=== PATIENT | female | born 2000 | race Caucasian/White ===

== ENCOUNTER → 2020-03-10 | Outpatient (CLI) | payer BC ==
[~2020-03-10] MED LIST: birth control
--- NOTE | 2020-03-10 21:27 | PAIN ---
DATE OF SERVICE: 03/10/2020 INITIAL CONSULTATION FOR PAIN CLINIC CHIEF COMPLAINT: Low back pain. HISTORY OF PRESENT ILLNESS: This is a 19-year-old female who presents with history of pain in the low back for about 7 months now. She fell on some stairs back in August 2019 when she was at school walking down some steps, and went down several steps on her back and on her buttocks. The patient reports that she has had significant pain since that time. Initially got better, but again much worse and recently has been limiting her activity fairly significantly. She has basically just been staying at home, sitting or lying down without much activity. The patient did see her neurosurgeon who is not recommending any surgical intervention at this time. The patient still has significant pain in the low back itself with standing, walking, changing positions, especially extension of the lumbar spine, rotation of the spine, but no radiation into the lower extremities. The patient reports it does not awaken her from sleep at night, much better with sitting or lying down. It does not affect her bowel or bladder control, but does affect her ability to walk. She is not using any assistive devices. She has had some chiropractic treatment was not significantly improving the pain. She is doing some stretching on her own. She is taking a muscle relaxer as well as naproxen, none of which have really decreased the pain by any significant measure. The patient reports her disability rating from 0-10, 10 being the worst, is a 7 with family home responsibilities, 6 with recreation and social activity, 5 with occupation, 0 sexual behavior, 6 with self-care and 3 with life support activities. The patient did have MRI scan of the lumbar spine showing only some mild diffuse disk bulging at L4-L5. The L5-S1 shows mild degeneration this with a broad-based central disk protrusion and moderate bilateral facet arthropathy. Mild bilateral foraminal stenosis. PAST MEDICAL HISTORY: Significant for only colds and coughs over the years. PREVIOUS SURGERIES: No previous surgeries. The patient has been in good health otherwise. ALLERGIES: The patient has no known drug allergies. CURRENT MEDICATIONS: Include oral contraceptives. No other medications except for [id number] naproxen. FAMILY HISTORY: Significant for no major medical problems or conditions. The patient's mother does have a back issues. SOCIAL HISTORY: The patient does not drink alcohol, does not smoke. Denies any illegal, illicit or recreational drugs. She is a student, single, lives locally at home with her parents in [place], [place]. REVIEW OF SYSTEMS: The patient's review of systems is positive for those items mentioned in history of present illness. All systems reviewed and otherwise negative. It is complete, full and well documented on the patient's chart. PHYSICAL EXAMINATION: VITAL SIGNS: The patient's blood pressure is 119/75, pulse 109, respirations 16, temperature 99.0 degrees Fahrenheit, height is 5 feet, weight is 160 pounds. GENERAL: The patient is awake, alert, oriented, appropriate, very pleasant demeanor. HEENT: Shows normocephalic, atraumatic. Extraocular movements are intact and symmetrical. Oral cavity: Mucous membranes moist and pink. Dentition is intact. NECK: Shows anterior throat supple without palpable lymphadenopathy noted. Swallow reflex symmetrical. CHEST: Shows normal on inspection. Breath sounds are clear bilaterally. HEART: Shows S1, S2 clear. No murmurs auscultated. ABDOMEN: Soft, nontender, nondistended. No palpable organomegaly is noted. No rebound or guarding demonstrated. BACK: Shows spine grossly in the midline. Normal appearing thoracic kyphosis and minor flattening of lumbar lordotic curvature with palpation. Inspection shows normal lordotic curvature. Paraspinous musculature shows symmetrical on inspection, with palpation shows some moderate tenderness throughout the upper, middle and lower distribution of paraspinous muscles, reasonably firm, but without specific trigger points atrophy or hypertrophy. No tenderness over the spinous processes, but some moderate tenderness with pressure over the posterior superior iliac spines. The sacroiliac joints are very mildly tender as well. No tenderness over the sacrum itself. The patient does show good rotational motion of lumbar spine but is tender both right and left as well as significant tenderness with extension and axial loading of the lumbar spine, better with forward flexion with some mild tenderness with forward flexion as well. EXTREMITIES: The patient's lower extremities show deep tendon reflexes at 2+ in the patellar, 1+ tendo-calcaneus tendons. Motor exam is strong with 5/5 dorsiflexion, extension, quadriceps and hamstring flexion symmetrical. Peripheral pulses are 1+ posterior tibia. No peripheral edema is noted bilaterally. Lower extremities are warm and dry to touch, equal in color and appearance. Straight leg raising noted to be negative for reproduction of any radicular symptoms. Gaenslen's and Brian's maneuvers are negative bilaterally as well. The patient is able to stand, stand on her toes without difficulty or loss of balance, walks with a normal appearing gait, does not appear to favor the right or left lower extremity. The patient does tend to favor her back when she is standing from a seated position, arch forward, keeps her back very straight when she is walking as well. SKIN: The patient's skin shows warm and dry, good turgor. No edema. No sores, rashes, or bruises throughout. IMPRESSION: 1. This is a 19-year-old female with 7-month history of low back pain after a fall at school. 2. MRI scan of lumbar spine as noted. 3. Consistent with facet syndrome, low back pain. PLAN: Options were discussed with the patient and the patient's mother, who accompanied her to visit today and we will start with most conservative measures at this time with stretching and strengthening exercises, heat applications as well as we will try Medrol Dosepak. The patient was given instructions as well as side effects with the medication. If not significantly improved, we did discuss potential of facet medial branch injections, to try the oral medications first and we will see how she responds. If not significantly better, we did discuss interventional techniques. She will follow up in approximately 1 week once the Medrol Dosepak is completed or sooner if any concerns arise. ALEXANDR TAVERAS MD DR: RADHA/mariangel JOB#: [id number] / [id number] BEN Blum MD
== END | disposition home or self-care (01) ==
LOC: PNCL 12:52
PROVIDERS: ATTEND Anesthesiology
DX: M47.897 Other spondylosis, lumbosacral region (principal); M51.27 Other intervertebral disc displacement, lumbosacral region; M48.07 Spinal stenosis, lumbosacral region; M53.86 Other specified dorsopathies, lumbar region
CPT/HCPCS: G0463

== ENCOUNTER → 2020-04-08 | Outpatient (CLI) | payer BC ==
[~2020-04-08] MED LIST changes: +BUPIVACAINE MPF 0.25% 10 ML VIAL. ONE; +IOHEXOL 180 MG/ML 10 ML VIAL. ONE; +methylPREDNISolone ACETATE 40 MG/ML VIAL. ONE; +methylPREDNISolone ACETATE 80 MG/ML VIAL. ONE
--- NOTE | 2020-04-08 11:34 | PAIN ---
DATE OF SERVICE: 04/08/2020 PROGRESS NOTE FOR PAIN CLINIC DIAGNOSES: Lumbar degenerative disk disease with lumbar spondylosis and lumbosacral spondylosis. HISTORY OF PRESENT ILLNESS: The patient is a 19-year-old female who returns for followup status post initial evaluation and Medrol Dosepak, but not significantly reducing the pain in the first few days. The patient reports the pain was improved only by about 30%. Pain returned fairly quickly after that in the low back bilaterally. The patient reports it is still better with sitting or lying down, but much worse with walking, standing with pain across the low back bilaterally, especially with extension of the spine and axial loading of the lumbar spine. The patient reports the pain is an 8 on a scale of 10 at its worst over the past week, 7 on average, 6 at its least and is a 7 today. The patient reports it is aching and sharp at times, constant, not radiating into the lower extremities, but in the low back itself, again worse with rotational movement, standing for prolonged periods, walking, does not awaken her from sleep at night. PHYSICAL EXAMINATION: VITAL SIGNS: The patient's blood pressure 115/68, pulse 88, respirations 18, temperature 98.2 degrees Fahrenheit, weight is 161 pounds. GENERAL: The patient is awake, alert, oriented, appropriate, very pleasant demeanor. HEENT: Shows normocephalic, atraumatic. Extraocular movements are intact and symmetrical. Oral cavity shows mucous membranes moist and pink. Dentition is intact. NECK: Shows anterior throat supple without palpable lymphadenopathy noted. Swallow reflex symmetrical. CHEST: Shows normal on inspection. Breath sounds clear to auscultation bilaterally. HEART: Shows S1, S2 clear. No murmurs auscultated. ABDOMEN: Soft, nontender, nondistended. BACK: Shows spine grossly in the midline. Normal appearing thoracic kyphosis and some lumbar lordotic curvature. Lumbar paraspinous muscle shows symmetrical on inspection, on palpation shows some moderate tenderness diffusely bilaterally, but only diffusely without significant radiation. The patient shows some moderate tenderness with palpation and is moderately tender with rotation greater than 10 degrees right and left as well as extension with significant pain in the low back bilaterally without radiation, better with forward flexion at 45 degrees, but not completely relieved. EXTREMITIES: The patient's lower extremities show deep tendon reflexes at 2+ in the patellar, 1+ tendo-calcaneus tendons. Motor exam is strong with 5/5 dorsiflexion, extension, quadriceps and hamstring flexion and symmetrical. Peripheral pulses are 1+ posterior tibia. No peripheral edema is noted bilaterally. Options were discussed with the patient. The patient's old chart was reviewed as her current medication regimen updated. Current review of systems updated today as well and we will proceed with bilateral L4-L5 and L5-S1 facet joint injections today with fluoroscopic guidance. Risks were discussed including but not limited to bleeding, infection, possibility of epidural hematoma, subsequent neurological compromise, dural puncture, headaches, spinal cord and/or nerve damage, side effects of steroid medication and poor results regarding pain control. The patient understands and wished to proceed. The patient will return to clinic in approximately 2 weeks for followup, was counseled on return appointment, activity level and side effects to be aware of. DIAGNOSES: Lumbar and lumbosacral spondylosis. PROCEDURE: Bilateral L4-L5 and L5-S1 facet joint injections using C-arm fluoroscopic guidance under sterile prep and drape using local anesthetic. MEDICATION INJECTED: A total of 120 mg Depo-Medrol plus 4 mL of 0.25% bupivacaine and 1 mL at each level and a total of 2 mL of contrast. CONDITION AT DISCHARGE: Stable. The patient tolerated procedure well and had no complications. ALEXANDR TAVERAS MD DR: RADHA/mariangel JOB#: [id number] / [id number]
== END | disposition home or self-care (01) ==
LOC: PNCL 09:47
PROVIDERS: ATTEND Anesthesiology
DX: M51.36 Other intervertebral disc degeneration, lumbar region (principal); M47.817 Spondylosis without myelopathy or radiculopathy, lumbosacral region; M47.816 Spondylosis without myelopathy or radiculopathy, lumbar region
CPT/HCPCS: 64635; 64636; J1030; J1040; J3490; Q9965